=== PATIENT | female | born 1975 | race Two or more races ===

== ENCOUNTER 2020-09-08 19:04 | Emergency (ER) | payer OTHER ==
[~2020-09-08] VITALS: Ht 167.6 cm; Wt 85.7 kg
[2020-09-08] MEDS ORDERED: ONDANSETRON HCL/PF 4 MG/2 ML VIAL ONE (19:20)
[2020-09-08] MEDS: IV NS 0.9% 1,000 ML BAG IV ONE (19:34)
[2020-09-08] MEDS: ONDANSETRON HCL/PF 4 MG/2 ML VIAL IVP ONE (19:34)
--- NOTE | 2020-09-08 19:36 | NUR ---
[id number] C/O DIFFUSE ABDOMINAL PAIN/CRAMPING X 1 WEEK. PT AAOX3, VSS. RR EVEN & UNLABORED. DENIES CP, SOB, DIZZINESS AT THIS TIME. PT SEEN & EVAL'D BY DR. MUÑOZ. MEDICATED PER ERMD, PT JOSI WELL. WILL CONT TO MONITOR.
[2020-09-08 19:43] LABS: BASOPHILS # (AUTO) 0.1 /CMM (0.0-0.2); BASOPHILS % (AUTO) 1.1 % (0.0-2.0); EOSINOPHILS % (AUTO) 2.4 % (0.0-6.0); HEMATOCRIT 32 % (33-45); HEMOGLOBIN 10.1 g/dL (11.5-14.8); LYMPHOCYTES # (AUTO) 0.6 /CMM (0.8-4.8); LYMPHOCYTES % (AUTO) 9.2 % (20.0-44.0); MEAN CORPUSCULAR HGB CONC 31 g/dl (31.0-36.0); MEAN CORPUSCULAR VOLUME 86 fL (82-100); MONOCYTES # (AUTO) 0.5 /CMM (0.1-1.30); NEUTROPHILS # (AUTO) 5.4 /CMM (1.8-8.9); NEUTROPHILS % (AUTO) 80.3 % (43.0-81.0); PLATELET COUNT (AUTO) 96 /CMM (150-450); RED BLOOD CELL COUNT(AUTO) 3.75 MIL/uL (4.0-5.2); WHITE BLOOD COUNT (AUTO) 6.7 K/uL (4.3-11.0)
[2020-09-08 19:48] LABS: ALBUMIN 3.1 g/dL (3.4-5.0); BILIRUBIN,DIRECT 0.7 mg/dL (0.0-0.2); CALCIUM, SERUM 9.5 mg/dL (8.5-10.1); CREATININE 0.5 mg/dL (0.6-1.3); POTASSIUM 3.2 mmol/L (3.5-5.1); TOTAL PROTEIN, SERUM 7.3 g/dL (6.4-8.2)
[2020-09-08] MEDS ORDERED: IOHEXOL-300 100 ML VIAL IV ONE (20:25)
[2020-09-08] MEDS ORDERED: CT SWABBABLE VALVE TRANS SET 1 EA INFUS.SET MC ONE (20:25)
[2020-09-08] MEDS ORDERED: IV NS 0.9% 250 ML IV ONE (20:26)
[2020-09-08 21:11] LABS: EOSINOPHILS % (MANUAL) 1 % (0-4); LYMPHOCYTES % (MANUAL) 9 % (16-48); MONOCYTES % (MANUAL) 4 % (0-11.0); NEUTROPHILS % (MANUAL) 86 (42-76)
[2020-09-08] MEDS ORDERED: POTASSIUM CHLORIDE 20 MEQ TAB.PRT.SR PO ONE (21:58)
[2020-09-08] MEDS: POTASSIUM CHLORIDE 20 MEQ TAB.PRT.SR PO ONE (22:01)
[2020-09-08 22:46] LABS: APPEARANCE,URINE Clear (CLEAR); BILIRUBIN,URINE Negative (NEGATIVE); BLOOD, URINE Negative Ery/uL (NEGATIVE); COLOR,URINE Yellow (YELLOW); KETONES,URINE Trace (NEGATIVE); LEUKOCYTE ESTERASE ,URINE Negative (NEGATIVE); NITRITE, URINE Negative (NEGATIVE); PROTEIN,URINE Negative (NEGATIVE); UGLUCOSE Negative (NEGATIVE)
[2020-09-08 22:57] LABS: BACTERIA,URINE 2+ /HPF (None Seen); RBC,URINE 0-2 /HPF (0-2); WBC,URINE 0-2 /HPF (0-3)
[2020-09-08 23:29] VITALS: BP 132/80
--- NOTE | 2020-09-08 23:29 | NUR ---
Patient discharged to home in stable condition. Written and verbal after care instructions given. Patient verbalizes understanding of instruction. IV removed. Catheter intact and site benign. Pressure and 4x4 applied to site. No bleeding noted.
== END 2020-09-08 23:30 | disposition home or self-care (01) ==
LOC: ER 19:06
DX: R10.84 Generalized abdominal pain (principal); F10.10 Alcohol abuse, uncomplicated; R11.2 Nausea with vomiting, unspecified; R00.0 Tachycardia, unspecified; Y90.6 Blood alcohol level of 120-199 mg/100 ml; Z59.0 Homelessness
CPT/HCPCS: 36415; 74177; 80048; 80076; 80320; 81001; 83690; 84703; 85007; 85025; 85730; 87086; 96361; 96374; 99285; J2405; J7030; J7050; Q9967; 81000-TC; 87186-TC; G0480

== ENCOUNTER 2022-07-12 23:39 | Emergency (ER) | payer OTHER ==
[~2022-07-12] VITALS: Ht 170.2 cm; Wt 68.0 kg
[2022-07-13] MEDS ORDERED: methylPREDNISolone SOD SUCC 125 MG/2ML VIAL IV ONE
[2022-07-13] MEDS ORDERED: IV NS 0.9% 500 ML BAG IV ONE
--- NOTE | 2022-07-13 | NUR ---
ELISEO SILVER FROM THE STREETS FOR ALLERGIC REACTION TO BEE STING TWO DAYS AGO. PATIENT GIVEN 50MG BENADRYL AND EPI PEN RANCH HAND LIVESTOCK. NOTED EYES SWOLLEN -SOB, RR EVEN AND UNLAOBRED, NO ACUTE DISTRESS NOTED. PATIENT TAKEN TO ER BED 15, CONNECTED TO CARIDAC AND POX MONITORS.
--- NOTE | 2022-07-13 04:36 | NUR ---
Patient discharged to home in stable condition. Written and verbal after care instructions given. Patient verbalizes understanding of instruction.
[2022-07-13 04:37] VITALS: BP 134/70
== END 2022-07-13 04:41 | disposition home or self-care (01) ==
LOC: ER 23:45
DX: S00.262A Insect bite (nonvenomous) of left eyelid and periocular area, initial encounter (principal); I10 Essential (primary) hypertension; W57.XXXA Bitten or stung by nonvenomous insect and other nonvenomous arthropods, initial encounter; Y93.89 Activity, other specified; Y92.89 Other specified places as the place of occurrence of the external cause; Y99.8 Other external cause status
CPT/HCPCS: 99283; 96374; 96361; 93005; J2930; J7040